=== PATIENT | female | born 1995 | race Hispanic/Latino ===

== ENCOUNTER → 2017-01-26 | Outpatient (REF) | payer OTHER | LOC: M SFHCLERA 11:53 | PROVIDERS: ATTEND Nurse Practitioner Family | DX: R10.9 Unspecified abdominal pain (principal) ==

== ENCOUNTER → 2017-11-21 | Outpatient (REF) | payer OTHER | LOC: M SFHCLERA 15:19 | DX: J02.9 Acute pharyngitis, unspecified (principal) ==

== ENCOUNTER → 2017-11-21 | Outpatient (CLI) | payer OTHER | LOC: M LRY 15:17 | DX: R05 Cough (principal) | CPT/HCPCS: 87880 ==

== ENCOUNTER → 2018-04-29 | Outpatient (REF) | payer OTHER | LOC: M SFHCLERA 16:07 | PROVIDERS: ATTEND Nurse Practitioner Family | DX: J02.9 Acute pharyngitis, unspecified (principal) ==

== ENCOUNTER → 2018-09-02 | Outpatient (CLI) | payer OTHER ==
--- NOTE | 2018-09-02 11:58 | REP ---
Supine abdomen two views: There are no comparison studies. The bowel gas pattern is normal. There is a large amount of fecal residue throughout the colon. No calcifications are identified. The skeletal soft tissue structures otherwise are unremarkable. Impression: Essentially negative supine abdomen. Large volume of fecal residue is noted throughout the colon. Electronically Signed by Ronny Mak MD 09/02/2018 11:49 A
== END ==
LOC: M LRY 11:11
PROVIDERS: ATTEND Physician Assistant
DX: M54.5 Low back pain (principal); R10.9 Unspecified abdominal pain
CPT/HCPCS: 74018; 81002; 81025; 87086; G0463

== ENCOUNTER → 2018-09-02 | Outpatient (REF) | payer OTHER | LOC: M SFHCLERA 11:00 | PROVIDERS: ATTEND Physician Assistant | DX: M54.5 Low back pain (principal) ==

== ENCOUNTER → 2018-09-06 | Outpatient (REF) | payer OTHER ==
[2018-09-06 13:41] LABS: CHLAMYDIA DNA AMPLIFICATION NEGATIVE (NEGATIVE); GC DNA AMPLIFICATION NEGATIVE (NEGATIVE)
== END ==
LOC: M SFHCLERA 11:03
PROVIDERS: ATTEND Family Medicine
DX: R10.2 Pelvic and perineal pain (principal)

== ENCOUNTER → 2018-10-07 | Outpatient (CLI) | payer OTHER ==
--- NOTE | 2018-10-07 15:57 | REP ---
Clinical: Pelvic and perineal pain . Technique: Transabdominal pelvic ultrasound followed by transvaginal examination for better evaluation of the endometrium and adnexa with color Doppler evaluation of the ovaries. Findings: Bladder is unremarkable and measures 7.6 x 6.3 x 8.7 cm . Normal anteverted uterus measures 6.4 x 2.8 x 3.6 cm . The endometrial complex measures 5.0 mm thickness. No discrete uterine or endometrial abnormalities are appreciated. Bilateral ovaries are normal in appearance and vascularity without evidence for torsion. Right ovary measures 3.5 x 2.7 x 2.2 cm ; R I = 0.61 . Left ovary measures 2.8 x 1.6 x 2.9 cm ; R I = 0.67 . No free fluid or adnexal mass lesion. Impression: 1. Normal pelvic ultrasound. Electronically Signed by Raul Patterson MD 10/07/2018 03:49 P
== END ==
LOC: M RAD 14:57
PROVIDERS: ATTEND Family Medicine
DX: R10.2 Pelvic and perineal pain (principal)